=== PATIENT | male | born 1950 | race African-American/Black ===

== ENCOUNTER 2017-03-22 13:01 | Inpatient (IN) ==
[2017-03-22] MEDS ORDERED: FAMOTIDINE 20 MG/2 ML VIAL IV ONE (13:13)
[2017-03-22] MEDS ORDERED: diphenhydrAMINE 50 MG/1 ML VIAL ONE (13:13)
[2017-03-22] MEDS ORDERED: FAMOTIDINE 20 MG/2 ML VIAL IV STA (13:13)
[2017-03-22] MEDS ORDERED: methylPREDNISolone SOD SUC 125 MG/2 ML VIAL ONE (13:13)
[2017-03-22] MEDS ORDERED: diphenhydrAMINE 50 MG/1 ML VIAL IV STA (13:13)
[2017-03-22] MEDS ORDERED: methylPREDNISolone SOD SUC 125 MG/2 ML VIAL IV STA (13:14)
[2017-03-22] MEDS ORDERED: ONDANSETRON 4 MG/2 ML VIAL ONE (13:19)
[2017-03-22] MEDS ORDERED: SUCCINYLCHOLINE 200 MG/10 ML VIAL ONE (13:25)
[2017-03-22] MEDS ORDERED: ROCURONIUM 100 MG/10 ML VIAL IV ONE (13:25)
[2017-03-22] MEDS ORDERED: LIDOCAINE 2% 5 ML VIAL ONE (13:25)
[2017-03-22] MEDS ORDERED: PROPOFOL 200 MG/20 ML VIAL IV ONE (13:25)
[2017-03-22] MEDS ORDERED: ONDANSETRON 4 MG/2 ML VIAL IV STA (13:30)
[2017-03-22] MEDS ORDERED: LACTATED RINGERS 2,000 ML IV ONE (14:28)
[2017-03-22] MEDS ORDERED: SEVOFLURANE 1 UNIT/15 MINUTE INH ONE (14:28)
[2017-03-22] MEDS ORDERED: MIDAZOLAM 2 MG/2 ML VIAL ONE (14:28)
[2017-03-22] MEDS ORDERED: PROPOFOL 1,000 MG/100 ML BOTTLE IV ONE (14:31)
[2017-03-22] MEDS: PROPOFOL 1,000 MG/100 ML BOTTLE IV SCH ×2 (14:36→22:56)
[2017-03-22 15:27] LABS: Allen Test Positive; Pt O2 Delivery Device Ventilator
[2017-03-22 15:28] LABS: ABG Base Excess -1.5 MMOL/L (-2.5-2.5); ABG HCO3 23.1 MMOL/L (20-26); ABG Oxygen Saturation 97.8 % (95-100); ABG PCO2 45.2 MM HG (35-48); ABG PH 7.342 (7.35-7.45); ABG TCO2 21.9 MMOL/L (23-27)
[2017-03-22] MEDS: INSULIN REGULAR 100 UNIT/ML SUBCUT SCH (17:14)
[2017-03-22] MEDS: methylPREDNISolone SOD SUC 40 MG/1 ML VIAL IV SCH (17:15)
[2017-03-22] MEDS: FAMOTIDINE 20 MG/2 ML VIAL IV SCH (17:15)
[2017-03-23] MEDS: methylPREDNISolone SOD SUC 40 MG/1 ML VIAL IV SCH ×3 (01:22→17:20)
[2017-03-23] MEDS: INSULIN REGULAR 100 UNIT/ML SUBCUT SCH ×4 (01:22→17:16)
[2017-03-23 04:09] LABS: ABG Base Excess -0.5 MMOL/L (-2.5-2.5); ABG HCO3 23.1 MMOL/L (20-26); ABG Oxygen Saturation 98.4 % (95-100); ABG PCO2 34.6 MM HG (35-48); ABG PH 7.443 (7.35-7.45); ABG PO2 136.2 MM HG (80-95); ABG TCO2 24.2 MMOL/L (23-27); Allen Test Positive; Pt O2 Delivery Device Ventilator
[2017-03-23] MEDS: FAMOTIDINE 20 MG/2 ML VIAL IV SCH ×2 (05:28→17:21)
[2017-03-23 08:29] LABS: Basophils % 0.1 % (0.0-0.8); Hematocrit 33.9 VOL% (42.0-52.0); Hemoglobin 11.8 GM/DL (14.0-18.0); Immature Granulocytes % 0.6 %; Lymphocytes # 2.2 10*3/uL (1.4-4.0); Lymphocytes % 12.8 % (21.2-54.2); Mean Corpuscular HGB Conc 34.8 GM/DL (32-36); Mean Corpuscular Hemoglobin 27 PG (27-34); Mean Corpuscular Volume 77.4 FL (87-102); Mean Platelet Volume 11.1 FL (9.6-12.0); Monocytes % 6.1 % (1.7-12.7); Neutrophils # 13.6 10*3/uL (1.4-7.4); Neutrophils % 80.4 % (38.7-73.9); Platelet Count 333 T/CUMM (130-400); Red Blood Count 4.38 MC/CUMM (3.8-5.5); Red Cell Distribution Width 13.4 % (9.3-17.3); White Blood Count 16.9 T/CUMM (4-12)
[2017-03-23 08:59] LABS: Calcium 8.7 MG/DL (8.5-10.1); Potassium 3.6 MMOL/L (3.5-5.1)
[2017-03-23] MEDS: HYDROmorphone 2 MG/1 ML VIAL IV PRN ×2 (09:06→21:00)
[2017-03-23] MEDS: PROPOFOL 1,000 MG/100 ML BOTTLE IV SCH (14:07)
[2017-03-24] MEDS: methylPREDNISolone SOD SUC 40 MG/1 ML VIAL IV SCH ×3 (00:37→16:43)
[2017-03-24] MEDS: HYDROmorphone 2 MG/1 ML VIAL IV PRN ×2 (00:37→09:19)
[2017-03-24] MEDS: INSULIN REGULAR 100 UNIT/ML SUBCUT SCH ×4 (00:41→18:56)
[2017-03-24] MEDS: FAMOTIDINE 20 MG/2 ML VIAL IV SCH ×2 (05:35→16:45)
[2017-03-24] MEDS: PROPOFOL 1,000 MG/100 ML BOTTLE IV SCH (13:53)
[2017-03-24] MEDS ORDERED: INDOMETHACIN 50 MG CAPSULE PO PRN (14:23)
[2017-03-24] MEDS ORDERED: DOCUSATE SODIUM 100 MG CAPSULE PO PRN (14:23)
[2017-03-24] MEDS: metFORMIN 500 MG TABLET PO SCH (16:43)
[2017-03-24] MEDS ORDERED: LOVASTATIN 20 MG TABLET PO SCH (21:00)
[2017-03-24] MEDS: GEMFIBROZIL 600 MG TABLET PO SCH (21:19)
[2017-03-24] MEDS ORDERED: diphenhydrAMINE CAP 25 MG CAPSULE PO PRN (22:07)
[2017-03-25] MEDS: INSULIN REGULAR 100 UNIT/ML SUBCUT SCH ×3 (00:34→12:30)
[2017-03-25] MEDS: methylPREDNISolone SOD SUC 40 MG/1 ML VIAL IV SCH ×2 (00:36→09:20)
[2017-03-25] MEDS: FAMOTIDINE 20 MG/2 ML VIAL IV SCH (05:44)
[2017-03-25] MEDS ORDERED: CHLORTHALIDONE 25 MG TABLET PO SCH (09:00)
[2017-03-25] MEDS ORDERED: ATENOLOL 50 MG TABLET PO SCH (09:00)
[2017-03-25] MEDS ORDERED: ALLOPURINOL 100 MG TABLET PO SCH (09:00)
[2017-03-25] MEDS: GEMFIBROZIL 600 MG TABLET PO SCH (09:19)
[2017-03-25] MEDS: metFORMIN 500 MG TABLET PO SCH ×2 (09:20→12:30)
[2017-03-25 12:00] VITALS: BP 156/77
== END 2017-03-25 15:01 | disposition home health service (06) | DRG 4 ==
LOC: N.ED 13:01 → N.ICU 13:38 → N.SDS 13:38 → N.ICU 15:55 → N.4E 03-24 15:28
PROVIDERS: ADMIT Otolaryngology; ATTEND Otolaryngology